=== PATIENT | female | born 1960 | race Hispanic/Latino ===

== ENCOUNTER 2019-10-31 07:01 | Day surgery (SDC) | payer BC ==
[2019-10-28 14:36] LABS: BASOPHILS % (AUTO) 0.7 % (0.0-5.0); EOSINOPHILS % (AUTO) 1.7 % (0.0-8.0); LYMPHOCYTES % (AUTO) 26.2 % (21.0-51.0); MEAN CORPUSCULAR HEMOGLOBIN 29.8 pg (27.0-33.0); MEAN CORPUSCULAR HGB CONC 33.2 g/dL (32.0-36.0); MEAN CORPUSCULAR VOLUME 89.7 fL (79-99); MONOCYTES % (AUTO) 5.5 % (3.0-13.0); NEUTROPHILS % (AUTO) 65.7 % (40.0-77.0); PLATELET COUNT (AUTO) 311 K/uL (130-400); RED BLOOD CELL COUNT(AUTO) 4.57 MIL/uL (4.00-5.50); RED CELL DISTRIBUTION WIDTH 12.7 % (11.0-15.5); WHITE BLOOD COUNT (AUTO) 9.4 K/uL (4.8-10.8)
[2019-10-28 14:47] LABS: CREATININE 0.8 mg/dL (0.5-1.5); POTASSIUM 3.8 mmol/L (3.5-5.1)
[2019-10-30 10:09] VITALS: BP 158/79
[2019-10-31] VITALS (16 sets, daily range): BP systolic 115–144; BP diastolic 51–78
[~2019-10-31] VITALS: Ht 162.6 cm; Wt 84.2 kg
[~2019-10-31 07:01] MED LIST: CEFTRIAXONE SODIUM 1 GM IVP SCH
[2019-10-31] MEDS ORDERED: CEFTRIAXONE SODIUM 1 GM ONE (08:09)
[2019-10-31] MEDS ORDERED: IOHEXOL-350 50ML VIAL IV ONE (09:13)
[2019-10-31] MEDS ORDERED: SUCCINYLCHOLINE 200MG/10ML SYR ONE (09:55)
[2019-10-31] MEDS ORDERED: LIDOCAINE PF 2% 5ML ABBOJECT ONE (09:55)
[2019-10-31] MEDS ORDERED: ROCURONIUM 10MG/1ML SYR 10 MG/ML ML ONE (09:56)
[2019-10-31] MEDS ORDERED: FENTANYL CITRATE PF 50 MCG/1 ML 2ML VIAL ONE (09:56)
[2019-10-31] MEDS ORDERED: PROPOFOL 10 MG/ML 20ML VIAL IV ONE (09:56)
[2019-10-31] MEDS ORDERED: GLYCOPYRROLATE 1 MG/5 ML SYRINGE ONE (10:50)
[2019-10-31] MEDS ORDERED: NEOSTIGMINE 5MG/5ML SYR IV ONE (10:50)
[2019-10-31] MEDS ORDERED: KETOROLAC TROMETHAMINE 30MG/ML ONE (10:51)
--- NOTE | 2019-10-31 12:05 | NUR ---
ASSESSMENT RECEIVED PT FROM PACU STAFF ELIU SEPULVEDA. PT [id number]. PT DENIES ANY PAIN AT THIS TIME.
[2019-10-31] MEDS ORDERED: PHENAZOPYRIDINE HCL 200 MG TABLET ONE (12:18)
--- NOTE | 2019-10-31 13:00 | NUR ---
DISCHARGE ORAL AND WRITTEN DISCHARGE INSTRUCTIONS GIVEN TO PTS DAUGHTER ALONG WITH PRESCRIPTIONS. NO OTHER QUESTIONS AT THIS TIME.
== END 2019-10-31 13:15 ==
LOC: DAH 07:01
PROVIDERS: ATTEND Urology
DX: N13.2 Hydronephrosis with renal and ureteral calculous obstruction (principal); E11.9 Type 2 diabetes mellitus without complications; K21.9 Gastro-esophageal reflux disease without esophagitis; Z20.828 Contact with and (suspected) exposure to other viral communicable diseases
CPT/HCPCS: 36415; 52005; 74420; 80048; 82948 ×2; 84703; 85025; A4215; A4221; A4222; A4223; A4358; A4510; A4657; A4930; A6260; C1758; C1769; C9803; J0330; J0696; J1885; J2001; J2704; J2710; J3010; J3490; J7030; Q9967; U0003